=== PATIENT | female | born 1945 | race Caucasian/White ===

== ENCOUNTER 2020-10-11 11:46 | Day surgery (SDC) | payer MEDICARE ==
[~2020-10-11] VITALS: Ht 167.6 cm; Wt 68.2 kg
--- NOTE | ~2020-10-11 | OR ---
[facility] [address], [place] [address] Draft DATE OF OPERATION: 10/11/2020 SURGEON: Yarely Caruso MD PREOPERATIVE DIAGNOSES: 1. Surveillance colonoscopy. 2. History of hyperplastic polyp 2009. POSTOPERATIVE DIAGNOSIS: Small polyp of left colon (excised). DESCRIPTION OF PROCEDURE: Total colonoscopy to cecum with cold morcellation polypectomy x1. ANESTHESIA: Intravenous sedation, fentanyl 150 mcg, Versed 7 mg. INDICATION: A 75-year-old white woman, who is a patient Dr. Begum in [facility] and underwent colonoscopy in 2009 by me, which showed a hyperplastic polyp. She has no symptoms of bleeding diarrhea or constipation and no family history of colon cancer. 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 On that basis, preoperative Ancef antibiotic was given. She is admitted to undergo surveillance colonoscopy understand the risks of bleeding, infection, and perforation. FINDINGS: The prep was excellent. Complete colonoscopy was undertaken of the cecum without question. Good identification of the appendiceal orifice and ileocecal valve was noted. There was a small linear polyp noted at the left colon in the mid to upper portion, which was excised with cold morcellation technique. The remaining colon was normal, other than a few scattered diverticuli. 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 DESCRIPTION OF PROCEDURE: The patient was brought to the endoscopy suite and placed in lateral decubitus position, given intravenous sedation to the point of slurred speech and nystagmus. Digital rectal examination was normal. An Olympus video colonoscope was passed into the rectum and manipulated throughout the PATIENT NAME: CECI TUCKER OPERATIVE REPORT DATE OF : 47 REPORT #: [id number] PHYSICIAN: YARELY CARUSO MD PCP: KIAN BEGUM DO REPORT IS CONFIDENTIAL AND NOT TO BE RELEASED WITHOUT AUTHORIZATION [facility] [address] [place] [id number] Draft colon ultimately intubating the cecum itself. The ileocecal valve and appendiceal orifice were normal. The scope was withdrawn from that point and examination throughout showed no sign of abnormality until the mid to upper left colon where a small linear polyp was noted. This was excised with cold morcellation technique completely. The scope was further withdrawn. There were a few scattered diverticuli noted. Retroflexed view of the rectum was normal other than some internal hemorrhoids. The scope was removed and the patient was taken to recovery room in good condition. CONCLUDING DIAGNOSES: 1. Polyp of left colon. 2. Diverticula of the sigmoid. PLAN: Recommend repeat colonoscopy in 5 years. If the pathology confirms adenomatous polyp is hyperplastic, consideration for 10 years if clinically appropriate based on her medical condition at age 85. MD TODD Aragon/АЛЕКСАНДР /[id number] cc: Kian Begum DO Copies: KIAN BEGUM DO ~ PATIENT NAME: CECI TUCKER OPERATIVE REPORT DATE OF : 47 REPORT #: [id number] PHYSICIAN: YARELY CARUSO MD PCP: KIAN BEGUM DO REPORT IS CONFIDENTIAL AND NOT TO BE RELEASED WITHOUT AUTHORIZATION
[2020-10-11] MEDS ORDERED: OMEPRAZOLE20 MG PO (12:01)
[2020-10-11] MEDS ORDERED: ATORVASTATIN CA10 MG PO (12:02)
[2020-10-11] MEDS ORDERED: LOSARTAN-HCTZ1 EACH PO (12:02)
[2020-10-11] MEDS ORDERED: FLOVENT HFA12 GM INH (12:02)
[2020-10-11] MEDS ORDERED: PROPAFENONE HC150 MG PO (12:03)
[2020-10-11] MEDS ORDERED: ZYRTEC10 M3 PO (12:03)
[2020-10-11] MEDS ORDERED: ADULT LOW DOSE81 MG PO (12:03)
[2020-10-11] MEDS ORDERED: LEVOTHYROXINE150 MCG PO (12:03)
[2020-10-11] MEDS ORDERED: AMLODIPINE BESYL5 MG PO (12:03)
[2020-10-11] MEDS ORDERED: CRANBERRY500 M2 PO (12:04)
[2020-10-11] MEDS ORDERED: OMEGA 3 1,0001 EACH PO (12:04)
[2020-10-11] MEDS ORDERED: CALCIUM + D SO1 EACH PO (12:04)
[2020-10-11] MEDS ORDERED: TYLENOL EXTRA500 MG PO (12:05)
[2020-10-11] MEDS ORDERED: GLUCOSAMINE1000 MG PO (12:05)
[2020-10-11] MEDS ORDERED: VITAMIN D250 MCG PO (12:05)
--- NOTE | 2020-10-11 14:07 | NUR ---
10/11/20 Cecil7 Anjelica Dickinson 1357 PATIENT INTO RECOVERY, BEDSIDE REPORT FROM BRUNO PRETTY. PATIENT AWAKE ON AND OFF. REPORTS NO NAUSEA OR PAIN 1407 DR. CARUSO AT BEDSIDE TALKING WITH PATIENT. PATIENT SITTING UP AND CONVERSING WITH PATIENT.
--- NOTE | 2020-10-12 12:24 | PATH ---
[facility] [address], [place] [address] Signed SPECIMEN(S): A DESCENDING POLYP SPECIMEN SOURCE: A. DESCENDING POLYP CLINICAL HISTORY: Colon screening, personal history of colon polyp. Post: Colon polyp x 1. Colonoscopy. MICROSCOPIC DESCRIPTION: Histologic sections of all submitted blocks are examined by light microscopy. These findings, together with the gross examination, support the pathologic diagnosis. FINAL PATHOLOGIC DIAGNOSIS: Descending colon, polypectomy: - Hyperplastic polyp. DS:[facility]:C2NR GROSS DESCRIPTION: The specimen, labeled "CT, descending colon polyp," is received in formalin and consists of two moreno soft tissue fragments that measure 0.1 cm in greatest dimension. The specimen is entirely submitted in cassette (A1). JS (under the direct supervision of a pathologist) The Gross Description was prepared using a voice recognition system. The report was reviewed for accuracy; however, sound-alike word errors, addition and/or deletions may occur. If there is any question about this report, please contact Client Services. PERFORMING LABORATORY: The technical component was performed by [facility], [address] [place] [address] (Manager Bridge: Cesia Tse MD; CLIA# [id number]). Professional interpretation was performed by [facility], [facility], [address] [place] [address] (CLIA#: [id number]). Diagnostician: Dino Rinaldi MD Pathologist Electronically Signed 10/12/2020 PATIENT NAME: CECI TUCKER PATHOLOGY DATE OF : 47 REPORT #: [id number] PHYSICIAN: [facility] PCP: KIAN BEGUM DO REPORT IS CONFIDENTIAL AND NOT TO BE RELEASED WITHOUT AUTHORIZATION [address] [address] Signed Copies: ~ PATIENT NAME: CECI TUCKER PATHOLOGY DATE OF : 47 REPORT #: [id number] PHYSICIAN: [facility] PCP: KIAN BEGUM DO REPORT IS CONFIDENTIAL AND NOT TO BE RELEASED WITHOUT AUTHORIZATION
== END 2020-10-11 14:45 | disposition home or self-care (01) ==
LOC: DS 11:46 → OPS 11:46 → DS 13:00 → OPS 14:45
PROVIDERS: ATTEND Surgery
PROC: 0DBM8ZX Excision of Descending Colon, Via Natural or Artificial Opening Endoscopic, Diagnostic (ICD-10-PCS; principal; 2020-10-11 13:00)
DX: Z12.11 Encounter for screening for malignant neoplasm of colon (principal); K63.5 Polyp of colon; Z87.19 Personal history of other diseases of the digestive system; E03.9 Hypothyroidism, unspecified; I10 Essential (primary) hypertension; J45.909 Unspecified asthma, uncomplicated; J68.3 Other acute and subacute respiratory conditions due to chemicals, gases, fumes and vapors
CPT/HCPCS: 99153; G0500; J2250; J3010; J7121